=== PATIENT | female | born 2000 | race Caucasian/White ===

== ENCOUNTER 2021-01-01 16:00 | Outpatient (CLI) | payer MEDICAID, SELFPAY ==
--- NOTE | ~2021-01-01 | US_ITS ---
EXAMINATION: US OB /maternal detail DATE: 01/01/2021 16:56 INDICATION: Second trimester anatomic survey TECHNIQUE: Real-time ultrasound of the pelvis was performed. COMPARISON: None. FINDINGS: There is a single living fetus in vertex presentation. The placenta is anterior. heart rate is 150 beats per minute (bpm). cardiac activity and movement are noted. The amniotic fluid index is subjectively normal. The following anatomy was identified as normal: 4 chamber heart 3 vessel cord cord insertion kidneys urinary bladder stomach spine diaphragm ventricles cisterna magna cerebellum The following biometric data were obtained: Biparietal diameter (BPD): 4.7 cm; head circumference (HC): 16.8 cm; abdominal circumference (AC): 14 .8 cm; femur length (FL): 2.9 cm. These measurements are concordant. Estimated weight is 299 g +/- 44 g, which correlates with the >97th percentile when 06/04/2021 i s used as estimated date of delivery. As single measurements, these parameters are each equal to the following estimated gestational ages w ith ranges of +/- 2 standard deviations: BPD: 20 weeks 2 days +/- 1 weeks 5 days. HC: 19 weeks 4 days +/- 1 weeks 3 days. AC: 20 weeks 1 days +/- 2 weeks 0 days. FL: 18 weeks 6 days +/- 1 weeks 6 days. estimated gestational age based solely on measurements from this exam is 19 weeks 5 days +/- 1 weeks 3 days. IMPRESSION: 1. Single living fetus in vertex presentation. 2. Estimated weight is 299 g +/- 44 g, which correlates with the >97th percentile when is used as estimated date of delivery. Reviewed, dictated and finalized at location A. INSPECTOR IMPRESSION: 1. Single living fetus in vertex presentation. 2. Estimated weight is 299 g +/- 44 g, which correlates with the >97th pe rcentile when 06/04/2021 is used as estimated date of delivery.
== END 2021-01-01 16:01 | disposition home or self-care (01) ==
PROVIDERS: Visit Provider Obstetrics & Gynecology Gynecology
DX: Z36.9 Encounter for antenatal screening, unspecified (principal); Z3A.19 19 weeks gestation of pregnancy
CPT/HCPCS: 76805

== ENCOUNTER 2021-05-11 20:42 | Observation (INO) | payer OTHER, SELFPAY ==
--- NOTE | 2021-05-11 20:42 | OBADM ---
This patient, Ysabel Dee, admitted to the OB room Labor/Delivery/Recovery 106 for observation. Patient/family oriented to hospital policies and general routines including ID bracelet, bed and alarms, visiting hours, pain management, procedures, bathroom and other care routines, personal items, smoking policy, room service/diet, and visiting hours. Patient/Family are encouraged to report perceived risks to care and to ask questions if they do not understand what they are told or what they should do.
--- NOTE | 2021-05-11 21:20 | PC.NURSE ---
pt arrived with complaints of her water possibly breaking around 1630 this afternoon. Pt denies feeling contractions.
--- NOTE | 2021-05-11 23:03 | PC.NURSE ---
Dr. Cosme notified of pt visit. Strip reviewed with provider. Pt orally hydrated with continued uterine irritability. Pt denies feeling contractions. Discharge order received. No other new orders at this time.
[2021-05-11 23:10] VITALS: BMI 28.2
--- NOTE | 2021-05-24 07:42 | PM.OBTRLD ---
OB - Triage/Final Diagnosis Visit Information Reason for evaluation: other (leaking fluid vaginally) Comments/Additional reasons for admission: I have assessed the risk for this patient, Ysabel Dee, and determined that she would benefit from observation care.
== END 2021-05-11 23:22 | disposition home or self-care (01) ==
PROVIDERS: Admitting Provider Obstetrics & Gynecology Gynecology; Visit Provider Obstetrics & Gynecology Gynecology
DX: O42.12 Full-term premature rupture of membranes, onset of labor more than 24 hours following rupture (principal); Z3A.38 38 weeks gestation of pregnancy
CPT/HCPCS: 84112; G0378; G0379

== ENCOUNTER 2021-05-17 21:14 | Inpatient (IN) | payer OTHER, SELFPAY ==
[2021-05-17] VITALS (10 sets, daily range): BP systolic 91–132; BP diastolic 45–82; PULSE 67–86; RESP 18; TEMP 36.8; BMI 30.6
--- NOTE | 2021-05-17 21:14 | LDADM ---
This patient, Ysabel Dee, was admitted to Labor/Delivery/Recovery 104 on 05/17/21 at 21:14. Plans for labor, pain management and were discussed with patient. Patient/family oriented to hospital policies and general routines including ID bracelet, bed and alarms, visiting hours, pain management, procedures, bathroom and other care routines, personal items, smoking policy, room service/diet and guest tray routines, infant security routines, and visiting hours. Patient/Family are encouraged to report perceived risks to care and to ask questions if they do not understand what they are told or what they should do. See OBIX for further documentation.
[2021-05-17] MEDS: DINOPROSTONE 10 MG VAG INSERT VAGINAL (21:58)
[2021-05-17 22:01] LABS: Basophils Percent Auto 0.1 % (0.2-1.2); Eosinophils Absolute Auto 0.1 K/mm3 (0-0.3); Eosinophils Percent Auto 0.9 % (0-4.4); Hematocrit 36.6 % (37.0-47.0); Hemoglobin 12.4 g/dL (12.0-15.0); Immature Granulocyte Absolute 0.09 K/mm3 (0.00-0.031); Immature Granulocyte Percent A 1.2 % (0-0.5); Lymphocytes Absolute Auto 1.67 K/mm3 (0.9-3.2); Lymphocytes Percent Auto 21.7 % (18.3-44.2); Mean Corpuscular HGB Conc 33.9 g/dl (32-36); Mean Corpuscular Hemoglobin 32.9 pg (26-34); Mean Corpuscular Volume 97.1 fl (80-100); Mean Platelet Volume 10.6 fl (7.4-10.4); Monocytes Percent Auto 12.6 % (2.6-8.5); Neutrophils Absolute Auto 4.9 K/mm3 (1.3-6.7); Neutrophils Percent Auto 63.5 % (45.5-73.1); Platelet Count Result 149 k/mm3 (150-375); Red Blood Count 3.77 M/mm3 (4.2-5.4); Red Cell Distribution Width 11.9 % (11.5-14.5); White Blood Count 7.7 K/mm3 (4.5-10.0)
[2021-05-17] MEDS: LACTATED RINGERS 1,000 ML 125 ML IV CONT (22:04)
[2021-05-17] MEDS: AMPICILLIN 2 GM/NS 100 ML 2 GM/100 ML BAG IVPB (22:05)
[2021-05-18] VITALS (250 sets, daily range): BP systolic 98–143; BP diastolic 47–128; PULSE 60–143; RESP 18; TEMP 36.3–38.5; O2SAT 90–100
[2021-05-18] MEDS: AMPICILLIN 1 GM/NS 50 ML 1 GM/50 ML BAG IVPB ×5 (01:57→18:52)
[2021-05-18] MEDS: fentaNYL CITRATE INJ (*CRX) 100 MCG/2 ML VIAL 50 MCG IV PUSH (04:03)
--- NOTE | 2021-05-18 05:13 | WPDANESEPP ---
Anes - Eval Pre Procedure Procedure: labor epidural Date/Time: 05/18/21 05:13 Surgeon: yoko Pre Op Diagnosis: Induction of Labor Patient Data Age: 20 Gender: F Height: 1.57 m Weight: 76 kg Last Vital Signs Temp 36.3 C L 05/18/21 00:42 Pulse 77 05/18/21 04:08 Resp 18 05/17/21 22:06 BP 128/67 05/18/21 04:08 Pulse Ox 99 05/18/21 05:12 Allergies Allergy/AdvReac Type Severity Reaction Status Date / Time No Known Allergies Allergy Verified 04/23/21 13:33 Home Medications Medication Instructions Recorded Confirmed Type PNV cmb#95-ferrous fumarate-FA 1 tablet PO DAILY 04/23/21 04/23/21 History [] aspirin 81 mg PO DAILY 05/17/21 05/17/21 History docusate sodium [Colace] 50 mg PO DAILY 05/17/21 05/17/21 History Laboratory Tests 05/17/21 05/17/21 05/17/21 21:52 21:52 21:52 WBC 7.7 K/mm3 K/mm3 (4.5-10.0) RBC 3.77 M/mm3 L M/mm3 (4.2-5.4) Hgb 12.4 g/dL g/dL (12.0-15.0) Hct 36.6 % L % (37.0-47.0) MCV 97.1 fl fl (80-100) MCH 32.9 pg pg (26-34) MCHC 33.9 g/dl g/dl (32-36) RDW 11.9 % % (11.5-14.5) Plt Count 149 k/mm3 L k/mm3 (150-375) MPV 10.6 fl H fl (7.4-10.4) Immature Gran % (Auto) 1.2 % H % (0-0.5) Neut % (Auto) 63.5 % % (45.5-73.1) Lymph % (Auto) 21.7 % % (18.3-44.2) [place] % (Auto) 12.6 % H % (2.6-8.5) Eos % (Auto) 0.9 % % (0-4.4) Baso % (Auto) 0.1 % L % (0.2-1.2) Lymph # (Auto) 1.67 K/mm3 K/mm3 (0.9-3.2) [place] # (Auto) 1.0 K/mm3 H K/mm3 (0.1-0.6) Eos # (Auto) 0.1 K/mm3 K/mm3 (0-0.3) Baso # (Auto) 0.0 K/mm3 K/mm3 (0.0-0.1) Abs Immat Gran (auto) 0.09 K/mm3 H K/mm3 (0.00-0.031) Absolute Neuts (auto) 4.9 K/mm3 K/mm3 (1.3-6.7) Absolute Nucleated RBC 0.0 K/mm3 K/mm3 (0.0-0.012) Nucleated RBC % 0.0 % % (0.0-0.2) RPR Pending Blood Type A Positive Antibody Screen Negative Patient hx anesthesia problems: none Family hx anesthesia problems: none [facility] Family History Family History (Updated 04/23/21 @ 13:36 by Jacqui Greenwood RN) Other Breast cancer Mother Arthritis Social History Social History Smoking status: Never smoker Substance use: never Gender identity (if verbalized by the patient): Female Spiritual care concerns: No Exam Day of Procedure 05/18/21 05:13
[2021-05-18] MEDS: fentaNYL CITRATE INJ (*CRX) 100 MCG/2 ML VIAL IV PUSH (07:35)
[2021-05-18] MEDS: LACTATED RINGERS 1,000 ML 125 ML IV CONT ×3 (10:23→18:52)
[2021-05-18 11:53] LABS: Rapid Plasma Reagin Non-Reactive (NonReactive)
--- NOTE | 2021-05-18 12:22 | WPDOBADMIT ---
Obstetrics - Admit Note Admission Note: record reviewed. No pertinent additions to the history and/or any subsequent changes in the physical findings that are not consistent with the expected course of the were found. Additions to the history and/or subsequent changes in the physical findings follow. None.Here for MIL at 39 wks. Cervadil late due to patient arriving late. Removed around 1030. Now 3-/-2 AROM with meconium stained fluid. RN to notify peds.
[2021-05-18] MEDS: OXYTOCIN 30 UNITS/NS 500 ML 30 UNITS/500 ML BAG 6 UNITS IV CONT (14:45)
--- NOTE | 2021-05-18 22:23 | PM.OBPRVD ---
OB - Delivery Note Procedure Delivery date: 05/18/21 Procedure: events: Labor Induction Intrapartal events: None Induction method: AROM, per pitocin protocol and per cervidil protocol Delivery monitor: external FHT and external uterine Route of delivery: Laceration Description: Perineal - 2nd Degree (small) Delivery repair: vicryl (3-0 vicryl) Specimen: Yes (placenta) Quantitative Blood Loss (ml): 225 Anesthesia type: Epidural Disposition: floor Baby Date of : 05/18/21 Weeks of gestation at delivery: 39 Infant gender: Male Weight (pounds): 8 Weight (ounces): 1 presentation: vertex position: Right Occiput Anterior Placenta delivery description: Spontaneous cord vessel description: 3 Vessels score one minute: 8 score five minutes: 9 Narrative: peds present for delivery cried immediately
--- NOTE | 2021-05-18 22:24 | P.DS_ITS ---
DS: Admitting Diagnosis Admitting Diagnosis Admitting Diagnosis: IUP 39 wks MIL DS: Discharge Diagnosis Discharge Diagnosis (1) (normal spontaneous vaginal delivery): Code(s): O80 - Encounter for full-term uncomplicated delivery Status: Acute OB - DS: Summary OB Procedures : Ultrasound OB Procedures Intrapartum: Spontaneous Vag Delivery OB Procedures: : None Peripartum Data Infant Delivery Method: Natural Vaginal Laceration Description: Perineal - 2nd Degree complications: none Status at Discharge Functional status at discharge: independent ambulation Overall status at discharge: patient is progressing back to baseline Time Spent with Patient Time attestation: Total time spent providing and/or coordinating discharge services: DS: Data Data Completed and Pending Labs on day of discharge: Labs from last 24 hours 05/17/21 05/17/21 21:52 21:52 RPR Non-reactive Blood Type A Positive Antibody Screen Negative Discharge Plan Discharge Attending physician on discharge: Leora Cosme Discharging Clinician: Leora Cosme Anticipated Discharge Date/Time: 05/20/21 22:25 Patient Disposition: Home, Self-Care Activity: may shower and pelvic rest Diet: regular Patient Instructions: Antibiotic Form Stand Alone Forms: General Discharge Information Follow-up/Referrals: Leora Cosme MD [Physician] - 6 Weeks Discharge Medications: Discontinued PNV cmb#95-ferrous fumarate-FA [] 28 mg iron- 800 mcg Tablet 1 tablet PO DAILY RF: 0 Colace 50 mg Capsule 50 mg PO DAILY RF: 0 aspirin 81 mg Tablet 81 mg PO DAILY RF: 0 Date of admission: 05/17/21 21:14 Primary Care Provider: PHYSICIAN,GREENHOUSE INSTRUCTOR Admitting Provider: Leora Cosme Attending physician on admission: Leora Cosme Condition: Stable Care Plan Goals: Patient received DepoProvera prior to DC
[2021-05-18] MEDS: OXYTOCIN 30 UNITS/NS 500 ML 30 UNITS/500 ML BAG 125 UNITS IV CONT (22:43)
[2021-05-19] VITALS (12 sets, daily range): BP systolic 92–126; BP diastolic 43–66; PULSE 62–95; RESP 16–20; TEMP 36.6–37.7; O2SAT 94–100
[2021-05-19] MEDS: IBUPROFEN 600 MG TABLET PO ×2 (00:13→11:45)
[2021-05-19] MEDS: BENZOCAINE 20% AER SPR (*SP) 56 GM CAN 1 SPRAY TOPICAL (00:13)
[2021-05-19] MEDS: WITCH HAZEL 40 PADS 1 PAD TOPICAL (00:13)
[2021-05-19 05:34] LABS: Hematocrit 35.1 % (37.0-47.0); Hemoglobin 11.6 g/dL (12.0-15.0)
--- NOTE | 2021-05-19 07:21 | WPDANLDPN2 ---
Anes-Prog Note L&D Date/Time: 05/19/21 07:21 Comfortable throughout: labor and delivery Neuraxial method: epidural Epidural/Spinal procedure site: clean & non-tender Neuro status: Neuro function grossly intact. Cardiovascular status: normal Respiratory status: normal Airway patency: baseline Mental status: baseline Post-Op hydration status: normal Vital Signs: Last Vital Signs Temp 36.6 C 05/19/21 04:00 Pulse 78 05/19/21 04:00 Resp 18 05/19/21 04:00 BP 103/56 L 05/19/21 04:00 Pulse Ox 98 05/19/21 04:00 Pain score (VAS): 11/22 I/O: Intake & Output 05/18/21 05/18/21 05/19/21 15:59 23:59 07:59 Intake Total 1100 1550 Output Total 735 Balance 1100 1550 -735 Post-procedural complaints: none Patient feedback: Patient satisfied with anesthetic care.
[2021-05-19] MEDS: DIBUCAINE 1% OINTMENT 30 GM TUBE 1 APPLIC TOPICAL (11:45)
[2021-05-19] MEDS: ACETAMINOPHEN 325 MG TABLET 650 MG PO (15:59)
--- NOTE | 2021-05-20 00:17 | PM.OBPNVD ---
OB - PN: Subj Subjective Date/time seen: 05/20/21 00:17 no complaints doing okay OB - PN: Obj Data Labs CBC & Chem 7: 05/19/21 04:15 Labs: Laboratory Results - last 24 hr 05/19/21 04:15 Hgb 11.6 L Hct 35.1 L OB - PN A/P Assessment and Plan (1) (normal spontaneous vaginal delivery): Code(s): O80 - Encounter for full-term uncomplicated delivery Status: Acute Assessment and Plan: continue with pp care. Time Spent With Patient Time: Total time spent is greater than 50% in coordination of care (as documented) at patient's floor/unit and/or counseling patient: Exam Narrative: Exam Narrative: ff below umbilicus
--- NOTE | 2021-05-20 07:42 | PM.OBPNVD ---
OB - PN: Subj Subjective Date/time seen: 05/20/21 07:42 Patient comments: no complaints and pain well controlled baby status: doing well and bottle feeding well OB - PN: Obj Data Labs CBC & Chem 7: 05/19/21 04:15 OB - PN A/P Plan day: 2 Plan: routine care, discharge home, follow up 6 weeks and other (DepoProvera for bc) Time Spent With Patient Time: Total time spent is greater than 50% in coordination of care (as documented) at patient's floor/unit and/or counseling patient: Exam : Bimanual exam- vagina & uterus: other (Uterus firm, nt @U)
[2021-05-20 08:15] VITALS: BP 121/67; PULSE 66; RESP 18; TEMP 37.1; O2SAT 99
[2021-05-20] MEDS: medroxyPROGESTERone ACETATE IM 150 MG/ML SYR IM (09:18)
[2021-05-20] MEDS: IBUPROFEN 600 MG TABLET PO (09:19)
[2021-05-20] MEDS: DOCUSATE SODIUM 100 MG CAPSULE PO (09:19)
[2021-05-20 09:30] VITALS: PULSE 66; RESP 18; O2SAT 99
[2021-05-20] MEDS: MEASLES,MUMPS,RUBELLA VACCINE 0.5 ML VIAL SUB-Q (15:10)
[2021-05-21 11:11] VITALS: BP 101/67; PULSE 70; RESP 16; TEMP 37.4; O2SAT 100
== END 2021-05-20 14:48 | disposition home or self-care (01) | DRG 560 ==
LOC: ANHLDR 05-18 22:25 → ANHOB2 05-19 01:18
PROVIDERS: Admitting Provider Obstetrics & Gynecology Gynecology; Visit Provider Obstetrics & Gynecology Gynecology
DX: O99.824 Streptococcus B carrier state complicating childbirth (principal); Z37.0 Single live birth; Z3A.39 39 weeks gestation of pregnancy; O36.8330 Maternal care for abnormalities of the fetal heart rate or rhythm, third trimester, not applicable or unspecified; O77.0 Labor and delivery complicated by meconium in amniotic fluid; O70.1 Second degree perineal laceration during delivery
CPT/HCPCS: 36415; 85014; 85018; 85025; 86592; 86850; 86900; 86901; 88307; 90710; A9270; J0290; J1050; J2590; J2795; J3010; J7120